=== PATIENT | male | born 1970 | race Caucasian/White ===

== ENCOUNTER 2019-07-31 01:11 | Emergency (ER) | payer OTHER ==
[~2019-07-31] VITALS: Ht 182.9 cm; Wt 78.0 kg
--- NOTE | 2019-07-31 01:15 | NUR ---
PT BIB EMS C/O FACIAL ABRASSIONS, R EYEBROW LAC, CHEST ABRASION, BILATERAL KNEE ABRASION S/P FALLING IN THE POOL. PT DENIES KO. PT AAOX4. (+) ETOH. PT ON MONITOR IN BED 4 WITH AT BEDSIDE. WILL CONTINUE TO MONITOR.
--- NOTE | 2019-07-31 01:59 | NUR ---
PT TAKEN TO RADIOLOGY VIA WHEELCHAIR
[2019-07-31] MEDS ORDERED: TDAP [DIPH/PERTUSSIS/TET] 0.5 ML VIAL IM ONE ×2 (02:00→02:46)
--- NOTE | 2019-07-31 02:12 | NUR ---
PT RETURNED FROM RADIOLOGY VIA WHEELCHAIR. PT TOLERATED WELL.
[2019-07-31] MEDS ORDERED: oxyCODONE/APAP (5/325 MG) 1 UDTAB TABLET ONE (02:45)
[2019-07-31] MEDS ORDERED: LIDOCAINE 1%-EPI 1:100,000 20 ML VIAL ONE (02:57)
[2019-07-31] MEDS ORDERED: oxyCODONE/APAP (5/325 MG) 1 UDTAB TABLET PO ONE (03:00)
[2019-07-31 03:10] VITALS: BP 129/74
--- NOTE | 2019-07-31 03:32 | NUR ---
Patient discharged to home in stable condition. Written and verbal after care instructions given. Patient verbalizes understanding of instruction.
== END 2019-07-31 03:56 | disposition home or self-care (01) ==
LOC: ER 01:15
DX: S22.41XA Multiple fractures of ribs, right side, initial encounter for closed fracture (principal); S01.111A Laceration without foreign body of right eyelid and periocular area, initial encounter; S51.812A Laceration without foreign body of left forearm, initial encounter; W01.0XXA Fall on same level from slipping, tripping and stumbling without subsequent striking against object, initial encounter; Y93.89 Activity, other specified; Y92.89 Other specified places as the place of occurrence of the external cause; Y99.8 Other external cause status
CPT/HCPCS: 12002; 12013; 71100; 90471; 90715; 99284; A6403; J3490